=== PATIENT | female | born 1955 | race Caucasian/White ===

== ENCOUNTER 2020-09-08 21:24 | Observation (INO) ==
[2020-09-08] MEDS ORDERED: ONDANSETRON INJ 2 MG/ML 2 ML VIAL IV STA (23:20)
[2020-09-08] MEDS ORDERED: SODIUM CHLORIDE 0.9% 1000ML 1,000 ML IV SCH (23:30)
[2020-09-08 23:32] LABS: Hematocrit (blood only) 39.9 % (37-47); Hemoglobin 13.4 g/dL (12.0-16.0); Mean Corpuscular Hemoglobin 31.4 pg (25-34); Mean Corpuscular Hgb Conc 33.6 g/dL (32-36); Mean Corpuscular Volume 93.4 fL (80-100); Mean Platelet Volume 10.5 fL (7.4-10.4); Platelet Count 174 K/uL (130-400); RDW Coefficient of Variation 13.4 % (11.5-14.5); RDW Standard Deviation 46.2 fL (36.4-46.3); Red Blood Count 4.27 M/uL (4.2-5.4); White Blood Count 9.07 K/uL (4.8-10.8)
[2020-09-08 23:49] LABS: Alanine Aminotransferase 19 U/L (12-78); Albumin Level 3.5 gm/dl (3.4-5.0); Aspartate Aminotransferase 25 U/L (15-37); BUN Creatinine Ratio 32.8 (10-20); Blood Urea Nitrogen 23 mg/dl (7-18); Calcium 8.3 mg/dl (8.5-10.1); Carbon Dioxide 24 mmol/L (21-32); Chloride 109 mmol/L (98-107); Creatinine Clr Calc Pharmacy 70.6 ml/min; Est GFR (African American) 103.6 ml/min; Est GFR (Non-African American) 89.4 ml/min; Glucose 106 mg/dl (70-99); Lipase 131 U/L (73-393); Potassium 3.8 mmol/L (3.5-5.1); Sodium 138 mmol/L (136-145)
[2020-09-08 23:56] LABS: Albumin Globulin Ratio 0.9 (0.9-2); Alkaline Phosphatase 67 U/L (45-117); Bilirubin,Total 0.4 mg/dl (0.2-1); Globulin 3.9 gm/dl (2.5-4.0); NT Pro B Type Natriuretic Pept 172 pg/ml (0-900); Total Protein 7.4 gm/dl (6.4-8.2); Troponin I < 0.015 ng/ml (0-0.045)
--- NOTE | 2020-09-09 | Emergency Department Note ---
History of Present Illness General Chief complaint: Illness Stated complaint: HEADACHE, FEVER, PRESSURE IN LUNGS Time Seen by Provider: 09/08/20 23:01 Source: patient Mode of arrival: ambulatory Limitations: no limitations History of Present Illness Provider complaint: headache, chest pain, joint pains, nausea Onset (ago): week(s) 1 Location: head and chest Radiation: non-radiation Severity: moderate Maximum Pain Intensity: 8 Current Pain Intensity: 8 Quality: + constant Relieved By: + none Exacerbated By: + none Associated symptoms: + chest pain, + cough, + fever/chills, + headaches, + loss of appetite, + malaise, + nausea/vomiting and + shortness of breath Treatments prior to arrival: other This is a 65-year-old female presents emergency department with multiple complaints. Patient states 1 week ago she had her first Remicade infusion. P atient states many years ago she took Remicade without any difficulty. She states the next day after the infusion she developed a dull headache. Patient states headache persisted throughout the week, was fairly constant and unchanging but she otherwise felt fine. She states 2 days ago she began n oticing a left-sided chest discomfort with dry cough. Patient states she has had mild accompanying rhinorrhea. States she does feel slightly short of breath with this pain. States tonight she developed a low-grade fever and diffuse bilateral arthralgias. She states the arthralgias feel worse than her prior flares of her RA. Patient denies any other change in her medications, diet, or activity. No known sick contacts. Patient did previously have coronavirus and has since been vaccinated in addition. Patient states she was nauseated today also however did not vomit. No change in bowel movements or urine. She denies any rash or sores. Pt seen during a time of high acuity and national emergency pandemic while wearing PPE. Home Medications Medication Instructions Recorded Confirmed Type calcium carbonate 600 mg (1,500 1 tab PO DAILY 09/08/20 09/08/20 History mg)-vitamin D3 400 unit tablet (Calcium 600 + D(3)) celecoxib 200 mg capsule (Celebrex) 200 mg PO BID PRN 09/08/20 09/08/20 History cholecalciferol (vitamin D3) 25 0 mcg PO DAILY 09/08/20 09/08/20 History mcg (1,000 unit) capsule (Vitamin D3) ferrous sulfate 27 mg iron tablet 27 mg PO DAILY 09/08/20 09/08/20 History hydrochlorothiazide 25 mg tablet 25 mg PO DAILY 09/08/20 09/08/20 History infliximab 100 mg intravenous 0 mg IV DIRECTED 09/08/20 09/08/20 History solution (Remicade) montelukast 10 mg tablet 10 mg PO DAILY 09/08/20 09/08/20 History (Singulair) omeprazole 40 mg capsule,delayed 40 mg PO DAILY PRN 09/08/20 09/08/20 History release Allergies Allergy/AdvReac Type Severity Reaction Status Date / Time codeine AdvReac Mild HALUCINATIO Verified 09/09/20 03:10 NS tramadol AdvReac Mild UPSET Verified 09/09/20 03:10 STOMACH Past Med/Surg History Medical History Hypertension Rheumatoid arthritis Social History Smoking Status: Never smoker Hx Alcohol Use: No Hx Substance Use: No Preferred Language: Anguillan Communication Ability: Effective Contact Lens Cutter Required: No Beliefs That Will Affect Care: None Current Living Situation: Spouse Other Information That Helps Us Care for You: No Feels Safe at Home: Yes Safety Concerns: Feels Safe At This Time Assistive Devices: None Review of Systems A total of 10 systems reviewed and were otherwise negative All systems reviewed & are unremarkable except as noted in HPI & below Physical Exam Vital Signs Vital Signs - 24 hr 09/08/20 21:27 09/08/20 22:52 09/09/20 00:50 Temperature 37.9 C H 37.2 C Temperature Source Temporal Artery Scan Oral Pulse Rate 93 H Pulse Rate [Radial] 89 83 Pulse Rhythm [Radial] Regular Respiratory Rate 18 16 18 Respiratory Effort / Characteristics Non-Labored Spontaneous Respiratory Depth Normal Blood Pressure 142/71 H Blood Pressure [Right Arm] 131/65 139/55 L Blood Pressure Mean 94 Blood Pressure Mean [Right Arm] 87 83 Pulse Oximetry 94 95 96 Oxygen Delivery Method Room Air Room Air Room Air Sepsis Recent Fever Within 48 Hours No Sepsis New/Unexplained Change in Mental Status No Sepsis Action Taken by Nursing No Action Required GENERAL: alert, unwell appearing, well nourished, mild distress, non-toxic EYE EXAM: normal conjunctiva, PERRL and EOM's grossly intact OROPHARYNX: no exudate, no erythema, lips, buccal mucosa, and tongue normal and mucous membranes are moist NECK: supple, no nuchal rigidity, no adenopathy, non-tender LUNGS: Clear to auscultation. Normal chest wall mechanics, no w/r/r HEART: no murmurs, S1 normal and S2 normal, mild tenderness with palpation of the left chest wall, no crepitus ABDOMEN: abdomen soft, non-tender, normo-active bowel sounds, no masses, no rebound or guarding. BACK: Back is symmetrical on inspection and there is no deformity, no midline tenderness, no CVA tenderness. SKIN: no rashes and no bruising UPPER EXTREMITIES: upper extremities are grossly normal. FROM, nml pulses b/l. No joint effusions. Pain with range of motion testing LOWER EXTREMITIES: No pitting edema. FROM, nml pulses b/l. No joint effusions. Pain with range of motion testing. NEURO EXAM: Normal sensorium, cranial nerves II-XII grossly intact, normal speech, no gross weakness of arms, no gross weakness of legs. Gross sensation intact. Course Course 0056: Pt updated on results. States no improvement. 0135: Still no improvement after additional medications. Feels unsteady getting up and walking due to lightheadedness as well as joint pain. States headache is mildly improved although still present. Nausea is improved. 0250: Discussed with Dr. Hewitt. Administered Medications Acetaminophen (Acetaminophen 500 Mg Tab) 500 mg PO QID [facility] Stop: 10/09/20 08:59 Last Admin: 09/10/20 05:36 Dose: Not Given Documented by: [id number] Admin: 09/09/20 16:46 Dose: 500 mg Documented by: [id number] Admin: 09/09/20 12:42 Dose: 500 mg Documented by: [id number] Admin: 09/09/20 09:39 Dose: 500 mg Documented by: [id number] Celecoxib (Celebrex 200 Mg Cap) 200 mg PO BID PRN PRN Reason: Pain Stop: 10/09/20 05:06 Last Admin: 09/09/20 10:50 Dose: 200 mg Documented by: [id number] Enoxaparin Sodium (Enoxaparin Inj 40 Mg/0.4 Ml Syr) 40 mg SQ QAM SHRUTI Stop: 10/09/20 08:59 Last Admin: 09/09/20 09:35 Dose: 40 mg Documented by: [id number] Ketorolac Tromethamine (Ketorolac Tromethamine 15 Mg/Ml Vial) 15 mg IV Q6H PRN PRN Reason: Pain Stop: 09/14/20 02:58 Last Admin: 09/09/20 03:16 Dose: 15 mg Documented by: [id number] Montelukast Sodium (Montelukast Sodium 10 Mg Tablet) 10 mg PO DAILY SHRUTI Stop: 10/09/20 08:59 Last Admin: 09/09/20 09:35 Dose: 10 mg Documented by: [id number] Vitamin D (Cholecalciferol 1,000 Units 25 Mcg Tab) 1,000 units PO DAILY SHRUTI Stop: 10/09/20 08:59 Last Admin: 09/09/20 09:35 Dose: 1,000 units Documented by: [id number] Discontinued Medications Calcium Gluconate (Calcium Gluconate 1000 Mg/60 Ml Nss) Confirm Administered Dose 1,000 mg IV .STK-MED ONE Stop: 09/09/20 03:05 Last Admin: 09/09/20 03:13 Dose: Not Given Documented by: [id number] Diphenhydramine HCl (Diphenhydramine 50 Mg/Ml Vial) 12.5 mg IV NOW STA Stop: 09/09/20 00:38 Last Admin: 09/09/20 00:44 Dose: 12.5 mg Documented by: [id number] Famotidine (Famotidine 20mg/5ml Iv Push) 20 mg IV ONE STA Stop: 09/09/20 00:38 Last Admin: 09/09/20 00:44 Dose: 20 mg Documented by: [id number] Sodium Chloride (Nss 1000ml) 1,000 mls @ 125 mls/hr IV .Q8H SHRUTI Stop: 10/08/20 23:29 Last Infusion: 09/09/20 04:55 Dose: 0 mls/hr Documented by: [id number] Admin: 09/08/20 23:36 Dose: 125 mls/hr Documented by: [id number] Acetaminophen (Ofirmev) 1,000 mg in 100 mls @ 400 mls/hr IV NOW STA Stop: 09/09/20 00:51 Last Infusion: 09/09/20 03:10 Dose: 0 mls/hr Documented by: [id number] Admin: 09/09/20 00:43 Dose: 400 mls/hr Documented by: [id number] Calcium Gluconate () 1,000 mg in 60 mls @ 240 mls/hr IV NOW STA Stop: 09/09/20 03:24 Last Infusion: 09/09/20 03:28 Dose: 0 mls/hr Documented by: [id number] Admin: 09/09/20 03:12 Dose: 240 mls/hr Documented by: [id number] Potassium Chloride/Sodium Chloride (Normal Saline W/20 Meq Kcl) 20 meq in 1,000 mls @ 80 mls/hr IV .[id number] ONE Stop: 09/09/20 17:59 Last Infusion: 09/09/20 19:48 Dose: 0 mls/hr Documented by: [id number] Admin: 09/09/20 06:38 Dose: 80 mls/hr Documented by: [id number] Methylprednisolone 40 mg/ (Syringe) 0.64 mls @ 1.5 mls/min IV ONE ONE Stop: 09/09/20 16:01 Last Admin: 09/09/20 16:46 Dose: 1.5 mls/min Documented by: [id number] Ioversol (Optiray 320 125ml) 125 ml IV ONCE ONE Stop: 09/09/20 04:49 Last Admin: 09/09/20 04:49 Dose: 95 ml Documented by: [id number] Loratadine (Loratadine 10 Mg Tab) 10 mg PO NOW ONE Stop: 09/09/20 05:31 Last Admin: 09/09/20 06:04 Dose: 10 mg Documented by: [id number] Ondansetron HCl (Ondansetron Inj 2 Mg/Ml 2 Ml Vial) 4 mg IV NOW STA Stop: 09/08/20 23:21 Last Admin: 09/08/20 23:36 Dose: 4 mg Documented by: [id number] Medical Decision Making Differential Diagnosis Differential Diagnosis includes but is not limited to headache, tension headache, cluster headache, migraine, subarachnoid hemorrhage, meningitis, mass, central venous thrombus, concussion, trauma and epidural/subdural hemorrhage. Medical Records Attestation: I reviewed the patient's medical records. Home Medications Current Medication List: was personally reviewed by me Laboratory Data Attestation: I reviewed the patient's lab results. Result diagrams: 09/09/20 05:25 09/09/20 05:25 Lab Results 09/08/20 09/08/20 09/09/20 Range/Units 22:50 22:50 02:19 WBC 9.07 (4.8-10.8) K/uL RBC 4.27 (4.2-5.4) M/uL Hgb 13.4 (12.0-16.0) g/dL Hct 39.9 (37-47) % MCV 93.4 (80-100) fL MCH 31.4 (25-34) pg MCHC 33.6 (32-36) g/dL RDW Std Deviation 46.2 (36.4-46.3) fL RDW Coeff of Christina 13.4 (11.5-14.5) % Plt Count 174 (130-400) K/uL MPV 10.5 H (7.4-10.4) fL Immature Gran % (Auto) 0.1 % Neut % (Auto) 72.8 % Lymph % (Auto) 17.5 % [place] % (Auto) 8.3 % Eos % (Auto) 0.9 % Baso % (Auto) 0.4 % Neut # (Auto) 6.60 H (1.4-6.5) K/uL Lymph # (Auto) 1.59 (1.2-3.4) K/uL [place] # (Auto) 0.75 H (0.11-0.59) K/uL Eos # (Auto) 0.08 (0-0.5) K/uL Baso # (Auto) 0.04 (0-0.2) K/uL Immature Gran # (Auto) 0.01 (0.00-0.02) K/uL Sodium 138 (136-145) mmol/L Potassium 3.8 (3.5-5.1) mmol/L Chloride 109 H (98-107) mmol/L Carbon Dioxide 24 (21-32) mmol/L Anion Gap 5.0 (3-11) BUN 23 H (7-18) mg/dl Creatinine 0.71 (0.6-1.2) mg/dl Est Cr Clr Drug Dosing 70.6 ml/min Est GFR ( Amer) 103.6 ml/min Est GFR (Non-Af Amer) 89.4 ml/min BUN/Creatinine Ratio 32.8 H (10-20) Glucose 106 H (70-99) mg/dl Calcium 8.3 L (8.5-10.1) mg/dl Magnesium 2.0 (1.8-2.4) mg/dl Total Bilirubin 0.4 (0.2-1) mg/dl AST 25 (15-37) U/L ALT 19 (12-78) U/L Alkaline Phosphatase 67 (45-117) U/L Troponin I < 0.015 (0-0.045) ng/ml NT-Pro-B Natriuret Pep 172 (0-900) pg/ml Total Protein 7.4 (6.4-8.2) gm/dl Albumin 3.5 (3.4-5.0) gm/dl Globulin 3.9 (2.5-4.0) gm/dl Albumin/Globulin Ratio 0.9 (0.9-2) Lipase 131 (73-393) U/L TSH 3.030 (0.300-4.500) uIu/ml Specimen Hemolysis POC Urine pH 5 (4.5-7.5) POC Urine Protein Negative (Negative) POC Ur Glucose (UA) Normal (Normal) POC Urine Ketones Negative (Negative) POC Urine Blood Negative (Negative) POC Urine Nitrite Negative (Negative) POC Urine Bilirubin Negative (Negative) POC Urine Urobilinogen Normal (Normal) POC U Leukocyte Esteras Negative (Negative) COVID-19 Eval Order SARS-CoV-2 (PCR) (Negative) 09/09/20 09/09/20 Range/Units 02:44 02:44 WBC (4.8-10.8) K/uL RBC (4.2-5.4) M/uL Hgb (12.0-16.0) g/dL Hct (37-47) % MCV (80-100) fL MCH (25-34) pg MCHC (32-36) g/dL RDW Std Deviation (36.4-46.3) fL RDW Coeff of Christina (11.5-14.5) % Plt Count (130-400) K/uL MPV (7.4-10.4) fL Immature Gran % (Auto) % Neut % (Auto) % Lymph % (Auto) % [place] % (Auto) % Eos % (Auto) % Baso % (Auto) % Neut # (Auto) (1.4-6.5) K/uL Lymph # (Auto) (1.2-3.4) K/uL [place] # (Auto) (0.11-0.59) K/uL Eos # (Auto) (0-0.5) K/uL Baso # (Auto) (0-0.2) K/uL Immature Gran # (Auto) (0.00-0.02) K/uL Sodium (136-145) mmol/L Potassium (3.5-5.1) mmol/L Chloride (98-107) mmol/L Carbon Dioxide (21-32) mmol/L Anion Gap (3-11) BUN (7-18) mg/dl Creatinine (0.6-1.2) mg/dl Est Cr Clr Drug Dosing ml/min Est GFR ( Amer) ml/min Est GFR (Non-Af Amer) ml/min BUN/Creatinine Ratio (10-20) Glucose (70-99) mg/dl Calcium (8.5-10.1) mg/dl Magnesium (1.8-2.4) mg/dl Total Bilirubin (0.2-1) mg/dl AST (15-37) U/L ALT (12-78) U/L Alkaline Phosphatase (45-117) U/L Troponin I (0-0.045) ng/ml NT-Pro-B Natriuret Pep (0-900) pg/ml Total Protein (6.4-8.2) gm/dl Albumin (3.4-5.0) gm/dl Globulin (2.5-4.0) gm/dl Albumin/Globulin Ratio (0.9-2) Lipase (73-393) U/L TSH (0.300-4.500) uIu/ml Specimen Hemolysis POC Urine pH (4.5-7.5) POC Urine Protein (Negative) POC Ur Glucose (UA) (Normal) POC Urine Ketones (Negative) POC Urine Blood (Negative) POC Urine Nitrite (Negative) POC Urine Bilirubin (Negative) POC Urine Urobilinogen (Normal) POC U Leukocyte Esteras (Negative) COVID-19 Eval Order Covid19 at [facility] SARS-CoV-2 (PCR) NEGATIVE (Negative) Imaging Data Radiologist's Impression: CT head: No ICH, mass-effect or edema. No evidence of acute cortical stroke. Visualized sinuses and mastoid air cells are clear. Radiologist: Amor Alvarado MD CT abdomen and pelvis without contrast: Bilateral nephrolithiasis. No ureteral stones or obstructive changes. No radiodense gallstones or pancreatitis. Colonic diverticula without diverticulitis. Appendix not identified. Calcified granuloma in the left lung base. Radiologist: Amor Alvarado MD ECG Data Attestation: I personally reviewed and interpreted this ECG as follows: Indication: + chest pain Rate (beats per minute): 83 Rhythm: + normal sinus ECG Intervals/blocks: + Normal QRS and + Normal QT ECG [place]: + Normal ECG ST segments: + Nonspecific ST abnormalities MDM Narrative This is a 65-year-old female with a history of rheumatoid arthritis who presents with multiple worsening symptoms over the course of the week following a Remicade infusion. No prior ADRs with Remicade infusions 15 years ago. No other recent medication changes or sick contact. Patient's headache worsening and patient now with diffuse bilateral joint pains and chest pain. Patient's labs and imaging here are reassuring. Patient reported persistent lightheadedness and pain with attempts at ambulation and I feel at this time is a fall risk and unsafe to go home where she is typically able to ambulate independently. Patient's headache was improved although not resolved with Tylenol. Patient otherwise had a nonfocal neuro exam and I do not suspect other acute [place] pathology. Discussed all results with patient, and case discussed with hospitalist for additional evaluation and management. An order was placed for continuous cardiac monitoring. The monitor shows a rate of 80_ with _normal sinus rhythm. Impression & Plan Headache, Chest pain, Arthralgia, Rheumatoid arthritis Discharge Plan Visit Data Chief Complaint: Illness Stated Complaint: HEADACHE, FEVER, PRESSURE IN LUNGS ED Provider: Taty Reilly Discharge Problem: Headache, Chest pain, Arthralgia, Rheumatoid arthritis Patient Disposition: Admitted As Inpatient Discharge Instructions Interventions: ED Discharge Assessment Last Done: 09/09/20 04:34 Discharge Problem: Headache Qualifiers: Headache type: unspecified Headache chronicity pattern: acute headache Intractability: not intractable Qualified Code(s): R51.9 - Headache, unspecified Chest pain Qualifiers: Chest pain type: unspecified Qualified Code(s): R07.9 - Chest pain, unspecified Arthralgia Qualifiers: Joint pain location: unspecified Qualified Code(s): M25.50 - Pain in unspecified joint Rheumatoid arthritis Qualifiers: Rheumatoid arthritis location: unspecified site Rheumatoid factor presence: unspecified presence Qualified Code(s): M06.9 - Rheumatoid arthritis, unspecified
[2020-09-09 00:32] LABS: Basophils # (auto) 0.04 K/uL (0-0.2); Basophils % (auto) 0.4 %; Eosinophils # (auto) 0.08 K/uL (0-0.5); Eosinophils % (auto) 0.9 %; Immature Granulocytes # (auto) 0.01 K/uL (0.00-0.02); Immature Granulocytes % (auto) 0.1 %; Lymphocytes # (auto) 1.59 K/uL (1.2-3.4); Lymphocytes % (auto) 17.5 %; Monocytes # (auto) 0.75 K/uL (0.11-0.59); Monocytes % (auto) 8.3 %; Neutrophils % (auto) 72.8 %
[2020-09-09] MEDS ORDERED: FAMOTIDINE 20MG/5ML IV PUSH IV STA (00:37)
[2020-09-09] MEDS ORDERED: diphenhydrAMINE 50 MG/ML VIAL IV STA (00:37)
[2020-09-09] MEDS ORDERED: ACETAMINOPHEN 1,000 MG/100 ML VIAL IV STA (00:37)
[2020-09-09 02:21] LABS: POC Urine Bilirubin Negative (Negative); POC Urine Blood Negative (Negative); POC Urine Glucose Normal (Normal); POC Urine Ketones Negative (Negative); POC Urine Leukocytes Negative (Negative); POC Urine Nitrite Negative (Negative); POC Urine Protein Negative (Negative); POC Urine Urobilinogen Normal (Normal); POC Urine pH 5 (4.5-7.5)
[2020-09-09] MEDS ORDERED: ACETAMINOPHEN 325 MG TAB PO PRN (02:59)
[2020-09-09] MEDS ORDERED: KETOROLAC TROMETHAMINE 15 MG/ML VIAL IV PRN (02:59)
[2020-09-09] MEDS ORDERED: oxyCODONE HCL IR 5 MG TAB (IMMEDIATE RELEASE) PO PRN (03:01)
[2020-09-09] MEDS ORDERED: CALCIUM GLUCONATE 1000 MG/60 ML NSS IV ONE (03:04)
[2020-09-09] MEDS ORDERED: CALCIUM GLUCONATE 1,000 MG/60 ML BAG IV STA (03:10)
--- NOTE | 2020-09-09 03:54 | History & Physical Report ---
Date of Service September 09, 2020 Assessment & Plan (1) Atypical chest pain: Plan: Pleuritic chest pain associated with generalized joint aches Possible delayed reaction to recent Remicade infusion for seronegative spondyloarthropathy Rule out pulmonary embolism hypertension, stable past tobacco abuse OBS Medical telemetry CT chest PE study [id number] Tylenol and daily antihistaminic as per up-to-date recommendations for possible delayed Remicade infusion reaction Request a.m. provider to contact patient's [facility] special events director (Dr. Daniels) in a.m. for additional recommendations. DVT prophylaxis. Lovenox subcu Full code Text document was generated using wali voice recognition software. It may contain grammatical or spelling errors. Kindly contact undersigned for clarification of any documentation item in question. History of Present Illness Chief Complaint: Headache, generalized joint pains Primary Care Provider: Jacob Blankenship MD History obtained from patient, family, and records. Medical history significant for seronegative spondylarthritis, hypertension, hyperlipidemia, urinary incontinence status post surgery, past tobacco abuse. Last week, patient received outpatient Remicade infusion for ankylosing spondylitis after more than a decade. Prior insurance approval issues with medication. [facility] special events director recommended treatment with recurrence of iritis symptoms as per documentation. Achy frontal headache symptoms which patient attributed to side effects of infusion after treatment. Worsening headache and subsequent generalized joint aches. Pleuritic left-sided chest pain with some shortness of breath. No unusual cough symptoms. No abdominal pain, no constipation. Low-grade fever at home with chills and nausea symptoms. Patient directed to ER by outpatient nurse. Medical History as above Surgical History : Anoscopy, sinus surgery, partial hysterectomy, appendectomy, tonsillectomy, bladder defect surgery Family History : Breast cancer, COPD, stroke, heart disease, lung cancer, rheumatoid arthritis Personal/Social history : Past tobacco abuse, no EtOH intake, lives with Allergies Allergy/AdvReac Type Severity Reaction Status Date / Time codeine AdvReac Mild HALUCINATIO Verified 09/09/20 03:10 NS tramadol AdvReac Mild UPSET Verified 09/09/20 03:10 STOMACH Home Medications Medication Instructions Recorded Confirmed Type calcium carbonate 600 mg (1,500 1 tab PO DAILY 09/08/20 09/08/20 History mg)-vitamin D3 400 unit tablet (Calcium 600 + D(3)) celecoxib 200 mg capsule (Celebrex) 200 mg PO BID PRN 09/08/20 09/08/20 History cholecalciferol (vitamin D3) 25 0 mcg PO DAILY 09/08/20 09/08/20 History mcg (1,000 unit) capsule (Vitamin D3) ferrous sulfate 27 mg iron tablet 27 mg PO DAILY 09/08/20 09/08/20 History hydrochlorothiazide 25 mg tablet 25 mg PO DAILY 09/08/20 09/08/20 History infliximab 100 mg intravenous 0 mg IV DIRECTED 09/08/20 09/08/20 History solution (Remicade) montelukast 10 mg tablet 10 mg PO DAILY 09/08/20 09/08/20 History (Singulair) omeprazole 40 mg capsule,delayed 40 mg PO DAILY PRN 09/08/20 09/08/20 History release Past Med/Surg History Medical History Hypertension Rheumatoid arthritis Social History Smoking Status: Never smoker Hx Alcohol Use: No Hx Substance Use: No Preferred Language: Malian Communication Ability: Effective Paperhanger And Painter Required: No Beliefs That Will Affect Care: None Current Living Situation: Spouse Other Information That Helps Us Care for You: No Feels Safe at Home: Yes Safety Concerns: Feels Safe At This Time Assistive Devices: None Review of Systems Review of Systems: As per HPI, all 10 systems reviewed, all other ROS negative Physical Exam Physical Exam: GENERAL: uncomfortable, pleasant, no respiratory distress SKIN: Normal color, warm HEENT: [place] palpebral conjunctivae, no ptosis, dry buccal mucosa NECK : Supple, no tenderness CHEST : CTA, minimal chest wall tenderness HEART : RRR, no obvious murmurs ABDOMEN: Some distention, nontender EXTREMITIES : Diffuse joint tenderness, no LE swelling NEUROLOGIC : Coherent, no facial asymmetry, no other gross focality Results & Data Results & Data ([facility]) Vital Signs (Past 12 Hours) Vital Signs Temp Pulse Pulse Pulse Resp BP BP 09/09/20 03:17 73 19 125/50 L 09/09/20 00:50 37.2 C 83 18 139/55 L 09/08/20 22:52 89 16 131/65 09/08/20 21:27 37.9 C H 93 H 18 142/71 H Pulse Ox 09/09/20 03:17 94 09/09/20 00:50 96 09/08/20 22:52 95 09/08/20 21:27 94 Laboratory Results Laboratory Results WBC 9.07 K/uL (4.8-10.8) 09/08/20 22:50 RBC 4.27 M/uL (4.2-5.4) 09/08/20 22:50 Hgb 13.4 g/dL (12.0-16.0) 09/08/20 22:50 Hct 39.9 % (37-47) 09/08/20 22:50 MCV 93.4 fL (80-100) 09/08/20 22:50 MCH 31.4 pg (25-34) 09/08/20 22:50 MCHC 33.6 g/dL (32-36) 09/08/20 22:50 RDW Std Deviation 46.2 fL (36.4-46.3) 09/08/20 22:50 RDW Coeff of Christina 13.4 % (11.5-14.5) 09/08/20 22:50 Plt Count 174 K/uL (130-400) 09/08/20 22:50 MPV 10.5 fL (7.4-10.4) H 09/08/20 22:50 Immature Gran % (Auto) 0.1 % 09/08/20 22:50 Neut % (Auto) 72.8 % 09/08/20 22:50 Lymph % (Auto) 17.5 % 09/08/20 22:50 [place] % (Auto) 8.3 % 09/08/20 22:50 Eos % (Auto) 0.9 % 09/08/20 22:50 Baso % (Auto) 0.4 % 09/08/20 22:50 Neut # (Auto) 6.60 K/uL (1.4-6.5) H 09/08/20 22:50 Lymph # (Auto) 1.59 K/uL (1.2-3.4) 09/08/20 22:50 [place] # (Auto) 0.75 K/uL (0.11-0.59) H 09/08/20 22:50 Eos # (Auto) 0.08 K/uL (0-0.5) 09/08/20 22:50 Baso # (Auto) 0.04 K/uL (0-0.2) 09/08/20 22:50 Immature Gran # (Auto) 0.01 K/uL (0.00-0.02) 09/08/20 22:50 Sodium 138 mmol/L (136-145) 09/08/20 22:50 Potassium 3.8 mmol/L (3.5-5.1) 09/08/20 22:50 Chloride 109 mmol/L (98-107) H 09/08/20 22:50 Carbon Dioxide 24 mmol/L (21-32) 09/08/20 22:50 Anion Gap 5.0 (3-11) 09/08/20 22:50 BUN 23 mg/dl (7-18) H 09/08/20 22:50 Creatinine 0.71 mg/dl (0.6-1.2) 09/08/20 22:50 Est Cr Clr Drug Dosing 70.6 ml/min 09/08/20 22:50 Est GFR ( Amer) 103.6 ml/min 09/08/20 22:50 Est GFR (Non-Af Amer) 89.4 ml/min 09/08/20 22:50 BUN/Creatinine Ratio 32.8 (10-20) H 09/08/20 22:50 Glucose 106 mg/dl (70-99) H 09/08/20 22:50 Calcium 8.3 mg/dl (8.5-10.1) L 09/08/20 22:50 Magnesium 2.0 mg/dl (1.8-2.4) 09/08/20 22:50 Total Bilirubin 0.4 mg/dl (0.2-1) 09/08/20 22:50 AST 25 U/L (15-37) 09/08/20 22:50 ALT 19 U/L (12-78) 09/08/20 22:50 Alkaline Phosphatase 67 U/L (45-117) 09/08/20 22:50 Troponin I < 0.015 ng/ml (0-0.045) 09/08/20 22:50 NT-Pro-B Natriuret Pep 172 pg/ml (0-900) 09/08/20 22:50 Total Protein 7.4 gm/dl (6.4-8.2) 09/08/20 22:50 Albumin 3.5 gm/dl (3.4-5.0) 09/08/20 22:50 Globulin 3.9 gm/dl (2.5-4.0) 09/08/20 22:50 Albumin/Globulin Ratio 0.9 (0.9-2) 09/08/20 22:50 Lipase 131 U/L (73-393) 09/08/20 22:50 TSH 3.030 uIu/ml (0.300-4.500) 09/08/20 22:50 Specimen Hemolysis 09/08/20 22:50 POC Urine pH 5 (4.5-7.5) 09/09/20 02:19 POC Urine Protein Negative (Negative) 09/09/20 02:19 POC Ur Glucose (UA) Normal (Normal) 09/09/20 02:19 POC Urine Ketones Negative (Negative) 09/09/20 02:19 POC Urine Blood Negative (Negative) 09/09/20 02:19 POC Urine Nitrite Negative (Negative) 09/09/20 02:19 POC Urine Bilirubin Negative (Negative) 09/09/20 02:19 POC Urine Urobilinogen Normal (Normal) 09/09/20 02:19 POC U Leukocyte Esteras Negative (Negative) 09/09/20 02:19 COVID-19 Eval Order Covid19 at [facility] 09/09/20 02:44 SARS-CoV-2 (PCR) NEGATIVE (Negative) 09/09/20 02:[address] head initial read: No ICH, mass-effect or edema. No evidence of acute cortical stroke. CT abdomen pelvis initial read: Bilateral nephrolithiasis. No ureteral stones or obstructive changes. No radiodense gallstones or pancreatitis. Colonic diverticulosis. Appendix not identified. Calcified granuloma left lung base. Chest x-ray as per my interpretation chronic interstitial thickening EKG as per my interpretation : Rate 85, NSR, normal axis, diffuse T wave flattening
[2020-09-09] MEDS ORDERED: OPTIRAY 320 125ml IV ONE (04:48)
[2020-09-09] MEDS ORDERED: PROMETHAZINE HCL 12.5 MG in SODIUM CHLORIDE 0.9% 50 ML IV PRN (05:07)
[2020-09-09] MEDS ORDERED: CeleBREX 200 MG CAP PO PRN (05:07)
[2020-09-09] MEDS ORDERED: PANTOprazole 40 MG TAB PO PRN (05:16)
[2020-09-09] MEDS ORDERED: NSS + 20MEQ KCL 20 MEQ/1,000 ML BAG IV ONE (05:30)
[2020-09-09] MEDS ORDERED: LORATADINE 10 MG TAB PO ONE (05:30)
[2020-09-09 05:44] LABS: Lyme Ab IgG w/WB Rflx Negative (Negative); Lyme Ab IgM w/WB Rflx Negative (Negative)
[2020-09-09 05:46] LABS: Hematocrit (blood only) 37.5 % (37-47); Hemoglobin 12.3 g/dL (12.0-16.0); Mean Corpuscular Hemoglobin 30.9 pg (25-34); Mean Corpuscular Hgb Conc 32.8 g/dL (32-36); Mean Corpuscular Volume 94.2 fL (80-100); Mean Platelet Volume 9.9 fL (7.4-10.4); Platelet Count 149 K/uL (130-400); RDW Coefficient of Variation 13.5 % (11.5-14.5); RDW Standard Deviation 46.8 fL (36.4-46.3); Red Blood Count 3.98 M/uL (4.2-5.4); White Blood Count 7.28 K/uL (4.8-10.8)
[2020-09-09 06:00] LABS: BUN Creatinine Ratio 29.5 (10-20); Calcium 8.6 mg/dl (8.5-10.1); Creatinine Clr Calc Pharmacy 68.5 ml/min; Est GFR (African American) 98.5 ml/min; Potassium 3.5 mmol/L (3.5-5.1)
[2020-09-09 06:04] LABS: Basophils # (auto) 0.03 K/uL (0-0.2); Basophils % (auto) 0.4 %; Eosinophils # (auto) 0.05 K/uL (0-0.5); Eosinophils % (auto) 0.7 %; Immature Granulocytes # (auto) 0.01 K/uL (0.00-0.02); Immature Granulocytes % (auto) 0.1 %; Lymphocytes # (auto) 1.63 K/uL (1.2-3.4); Lymphocytes % (auto) 22.4 %; Monocytes # (auto) 0.39 K/uL (0.11-0.59); Monocytes % (auto) 5.4 %; Neutrophils # (auto) 5.17 K/uL (1.4-6.5)
--- NOTE | 2020-09-09 07:25 | CT Scan Report ---
HEAD CT NONCONTRAST CT DOSE: 537.48 mGy.cm HISTORY: atypical headache TECHNIQUE: Multiaxial CT images of the head were performed without the use of intravenous contrast. A utomated exposure control was utilized for this study. A dose lowering technique was utilized adheri ng to the principles of ALARA. Comparison: None. Findings: The paranasal sinuses and mastoid air cells are clear. The calvarium and skull base are int act. The ventricles and sulci are within normal limits. There is no mass, hematoma, midline shift, or acute infarct. Impression: No acute intracranial abnormality. ACT 112: Negative or not required by law. Electronically signed by: Kayden Olmstead M.D. 09/09/2020 7:24 AM
--- NOTE | 2020-09-09 07:55 | XRay Report ---
XR chest 1V portable HISTORY: Atypical chest pain COMPARISON: None. FINDINGS: No pneumothorax. No pleural effusions. The cardiac silhouette is top normal in size. There is mild diffuse interstitial thickening which is likely chronic. No evidence for pulmonary edema. No focal lung consolidations to suggest pneumonia. There is a calcified granuloma within the left lower lobe. IMPRESSION: Mild diffuse interstitial thickening is likely chronic. Otherwise, no acute process within the chest. ACT 112: Negative or not required by law. Electronically signed by: Kayden Olmstead M.D. 09/09/2020 7:54 AM
--- NOTE | 2020-09-09 08:15 | CT Scan Report ---
CT ANGIOGRAPHY OF THE CHEST, PULMONARY EMBOLUS PROTOCOL CLINICAL HISTORY: Chest pain. COMPARISON STUDY: Chest radiograph September 08, 2020. TECHNIQUE: Following IV administration of 95 mL of Optiray, helical axial images of the chest were ob tained utilizing the pulmonary embolus protocol. Maximal intensity projections and sagittal and nidia nal reformats were viewed on an independent 3D workstation. IV contrast was administered without com plication. Automated exposure control was utilized for the study. A dose lowering technique was uti lized adhering to the principles of ALARA. CT DOSE: 216.56 mGy.cm FINDINGS: No pulmonary emboli are identified. There is no thoracic aortic dissection. There is no pe ricardial effusion. Size of the heart is at the upper limits of normal. There are multiple calcified mediastinal and left hilar lymph nodes. There is a calcified granuloma within the left lower lobe. Mo derate emphysema is noted. No consolidation is identified to suggest pneumonia. IMPRESSION: 1. No pulmonary emboli identified. 2. No acute process within the chest. 3. Emphysema. 4. Evidence for a previous granulomatous process. ACT 112: Negative or not required by law. Electronically signed by: Craig Pascual M.D. 09/09/2020 8:14 AM
[2020-09-09] MEDS ORDERED: NON-FORMULARY MEDICATION (Ferrous Sulfate 27 mg iron Tablet) PO SCH (09:00)
[2020-09-09] MEDS: ENOXAPARIN INJ 40 MG/0.4 ML SYR SQ SCH (09:35)
[2020-09-09] MEDS: MONTELUKAST SODIUM 10 MG TABLET PO SCH (09:35)
[2020-09-09] MEDS: CHOLECALCIFEROL 1,000 UNITS 25 MCG TAB PO SCH (09:35)
[2020-09-09] MEDS: ACETAMINOPHEN 500 MG TAB PO SCH ×3 (09:39→16:46)
--- NOTE | 2020-09-09 09:47 | Electrocardiogram Report ---
Test Reason : Blood Pressure : / mmHG Vent. Rate : 083 BPM Atrial Rate : 083 BPM P-R Int : 140 ms QRS Dur : 092 ms QT Int : 314 ms P-R-T Axes : 073 -11 108 degrees QTc Int : 368 ms Normal sinus rhythm Diffuse Minor Nonspecific T wave abnormality Abnormal ECG No previous ECGs available Confirmed by Jacob Coleman ([id number]) on 09/09/2020 9:46:40 AM Referred By: REFERRED SELF Confirmed By:Jacob Coleman
--- NOTE | 2020-09-09 09:53 | CT Scan Report ---
CT SCAN OF THE ABDOMEN AND PELVIS WITHOUT CONTRAST CLINICAL HISTORY: nausea COMPARISON STUDY: No previous studies for comparison. TECHNIQUE: CT scan of the abdomen and pelvis was performed from the lung bases to the proximal femurs . Images are reviewed in the axial, sagittal, and coronal planes. IV contrast was not administered fo r this examination. A dose lowering technique was utilized adhering to the principles of ALARA. CT DOSE: 306.53 mGy.cm FINDINGS: Lower chest: Minimal atelectasis is seen at dependent portions of bilateral lower lobes. Large calcif ied nodule is seen at the subpleural aspect of the left lower lobe. Liver: The unenhanced liver is normal in size, contour, and attenuation. There is no intrahepatic bartolo iary ductal dilatation. Gallbladder: Unremarkable. Spleen: Normal in size and attenuation. Pancreas: Unremarkable. Adrenal glands: Unremarkable. Kidneys: No evidence of hydronephrosis. Multiple calculi are seen within bilateral renal pelvises whi ch measures up to 2 mm on the right. Minimal prominence of the right renal pelvis without definite hy dronephrosis.. No calculi within ureter is seen. Bowel: The small bowel and colon are normal in course and caliber. Appendix is not well seen. Peritoneum: There is no intraperitoneal free air or abdominal ascites. Vasculature: Abdominal aorta is normal in caliber with scattered calcifications of its wall. Adenopathy: None. Pelvic viscera: Urinary bladder is partially decompressed which limits evaluation. Uterus is surgical ly absent. Possible right adnexal cyst measuring 2 cm in size (2/60) Skeletal structures: Thoracolumbar S-shaped scoliosis associated with multilevel severe degenerative changes of the spine. Mild diffuse osteopenia. IMPRESSION: 1. Bilateral nephrolithiasis without definite hydronephrosis. 2. Nondilated loops of bowel. Appendix is not well seen. 3. Degenerative changes of the spine. 4. Possible right adnexal cysts. Please correlate above-mentioned findings with [employer]IT[employer] evaluation. 5. The rest of findings as above. ACT 112: Negative or not required by law. The above report was generated using voice recognition software. It may contain grammatical, syntax o r spelling errors. Electronically signed by: Lisa Clements DO 09/09/2020 9:52 AM
[2020-09-09] MEDS ORDERED: methylPREDNISolone 40 MG in SYRINGE 0 ML IV ONE (16:00)
--- NOTE | 2020-09-09 16:09 | Hospitalist Progress Note ---
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 -CTA:No pulmonary emboli identified. No acute process within the chest. Emphysema. Evidence for a previous granulomatous process. -CT ABD:Bilateral nephrolithiasis without definite hydronephrosis. Nondilated loops of bowel. Appendix is not well seen. Degenerative changes of the spine. Possible right adnexal cysts. - Discussed with Dr.Francesca Daniels who recommends Prednisone taper course Start on Solumedrol 40mg X1 today and Prednisone taper starting tomorrow Will give Prednisone 40 mg daily for 2 days, 30 mg daily for 2 days, 20 mg daily for 2 days and then 10 mg for 1 week Needs follow-up with rheumatology upon discharge Pleuritic chest pain CTA as above Negative Troponin Chest pain resolved Monitor Hypertension stable past tobacco abuse DVT Px; Lovenox SQ Code Status Full code Admission and Anticipated Discharge Date Admission Date: September 09, 2020 Subjective Patient is seen and examined at bedside States having generalized body pain Also reports headache associated with nausea but no vomiting Denies chest pain, dyspnea, dizziness Discussed with rheumatology today Review of Systems Review of Systems: All systems reviewed & are unremarkable except as noted in Subjective Physical Exam Physical Exam: Physical Exam: Vitals signs as noted above General Appearance:Moderately built and nourished, no apparent distress Head: normocephalic, Atraumatic Eyes: normal inspection, EOMI Neck: supple, Trachea midline Respiratory/Chest: Normal breath sounds, CTA, No accessory muscle use Cardiovascular: S1, S2, No murmur Abdomen/GI:Soft, Non tender, Bowel sounds present Extremities/Musculoskeletal:normal inspection, no edema Neurologic/Psych:AAOX3, grossly no focal neurological deficits Skin: normal color, warm Results & Data Results & Data ([facility]) Vital Signs (Past 12 Hours) Vital Signs Temp Pulse Pulse Resp BP Pulse Ox 09/09/20 15:20 36.7 C 71 18 91/51 L 94 09/09/20 11:09 37.0 C 97 H 20 130/69 93 09/09/20 07:40 36.5 C 77 18 116/71 98 09/09/20 07:19 73 09/09/20 06:00 66 09/09/20 05:11 36.8 C 67 14 96/57 L 98 09/09/20 05:00 36.8 C 67 14 96/57 L 98 Laboratory Results Short CBC 09/08/20 09/09/20 Range/Units 22:50 05:25 WBC 9.07 7.28 (4.8-10.8) K/uL Hgb 13.4 12.3 (12.0-16.0) g/dL Hct 39.9 37.5 (37-47) % Plt Count 174 149 (130-400) K/uL BMP 09/08/20 09/09/20 22:50 05:25 Sodium 138 140 Potassium 3.8 3.5 Chloride 109 H 110 H Carbon Dioxide 24 27 BUN 23 H 22 H Creatinine 0.71 0.74 Glucose 106 H 90 Calcium 8.3 L 8.6 Cardiac Enzymes 09/08/20 Range/Units 22:50 Troponin I < 0.015 (0-0.045) ng/ml Liver Function 09/08/20 Range/Units 22:50 Total Bilirubin 0.4 (0.2-1) mg/dl AST 25 (15-37) U/L ALT 19 (12-78) U/L Alkaline Phosphatase 67 (45-117) U/L Albumin 3.5 (3.4-5.0) gm/dl
[2020-09-10] MEDS: ACETAMINOPHEN 500 MG TAB PO SCH ×2 (05:36→08:30)
[2020-09-10 07:33] LABS: Hematocrit (blood only) 38.1 % (37-47); Hemoglobin 12.5 g/dL (12.0-16.0); Mean Corpuscular Hemoglobin 30.9 pg (25-34); Mean Corpuscular Hgb Conc 32.8 g/dL (32-36); Mean Corpuscular Volume 94.1 fL (80-100); Mean Platelet Volume 10.1 fL (7.4-10.4); Platelet Count 162 K/uL (130-400); RDW Coefficient of Variation 13.4 % (11.5-14.5); RDW Standard Deviation 46.2 fL (36.4-46.3); Red Blood Count 4.05 M/uL (4.2-5.4); White Blood Count 7.99 K/uL (4.8-10.8)
[2020-09-10 08:06] LABS: BUN Creatinine Ratio 37.4 (10-20); Blood Urea Nitrogen 21 mg/dl (7-18); Calcium 8.8 mg/dl (8.5-10.1); Carbon Dioxide 26 mmol/L (21-32); Chloride 112 mmol/L (98-107); Creatinine Clr Calc Pharmacy 90.2 ml/min; Est GFR (African American) 113.4 ml/min; Est GFR (Non-African American) 97.8 ml/min; Glucose 105 mg/dl (70-99); Potassium 4.1 mmol/L (3.5-5.1); Sodium 142 mmol/L (136-145)
[2020-09-10 08:13] LABS: Troponin I < 0.015 ng/ml (0-0.045)
[2020-09-10] MEDS: ENOXAPARIN INJ 40 MG/0.4 ML SYR SQ SCH (08:31)
[2020-09-10] MEDS: MONTELUKAST SODIUM 10 MG TABLET PO SCH (08:31)
[2020-09-10] MEDS: CHOLECALCIFEROL 1,000 UNITS 25 MCG TAB PO SCH (08:31)
[2020-09-10] MEDS ORDERED: predniSONE 20 MG TAB PO SCH (09:00)
[2020-09-10] MEDS ORDERED: LORATADINE 10 MG TAB PO SCH (09:00)
--- NOTE | 2020-09-10 11:17 | Hospitalist Progress Note ---
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 -CTA:No pulmonary emboli identified. No acute process within the chest. Emphysema. Evidence for a previous granulomatous process. -CT ABD:Bilateral nephrolithiasis without definite hydronephrosis. Nondilated loops of bowel. Appendix is not well seen. Degenerative changes of the spine. Possible right adnexal cysts. - Discussed with Dr.Francesca Daniels who recommends Prednisone taper course Start on Solumedrol 40mg X1 today and Prednisone taper starting tomorrow Will give Prednisone 40 mg daily for 2 days, 30 mg daily for 2 days, 20 mg daily for 2 days and then 10 mg for 1 week Needs follow-up with rheumatology upon discharge Plan to discharge home today Pleuritic chest pain CTA as above Negative Troponin Chest pain resolved Monitor Hypertension stable past tobacco abuse DVT Px; Lovenox SQ Code Status Full code Admission and Anticipated Discharge Date Admission Date: September 09, 2020 Subjective Patient is seen and examined at bedside States feeling much better today Headache, arthritic pain improved No new complaints Denies chest pain, dyspnea, dizziness, nausea, abd pain Review of Systems Review of Systems: All systems reviewed & are unremarkable except as noted in Subjective Physical Exam Physical Exam: Physical Exam: Vitals signs as noted above General Appearance:Moderately built and nourished, no apparent distress Head: normocephalic, Atraumatic Eyes: normal inspection, EOMI Neck: supple, Trachea midline Respiratory/Chest: Normal breath sounds, CTA, No accessory muscle use Cardiovascular: S1, S2, No murmur Abdomen/GI:Soft, Non tender, Bowel sounds present Extremities/Musculoskeletal:normal inspection, no edema Neurologic/Psych:AAOX3, grossly no focal neurological deficits Skin: normal color, warm Results & Data Results & Data ([facility]) Vital Signs (Past 12 Hours) Vital Signs Temp Pulse Pulse Resp BP Pulse Ox 09/10/20 07:34 36.7 C 56 L 18 123/61 95 09/10/20 03:51 36.6 C 71 16 133/69 94 09/10/20 01:17 65 Laboratory Results Short CBC 09/10/20 Range/Units 07:20 WBC 7.99 (4.8-10.8) K/uL Hgb 12.5 (12.0-16.0) g/dL Hct 38.1 (37-47) % Plt Count 162 (130-400) K/uL BMP 09/10/20 07:20 Sodium 142 Potassium 4.1 D Chloride 112 H Carbon Dioxide 26 BUN 21 H Creatinine 0.56 L Glucose 105 H Calcium 8.8 Cardiac Enzymes 09/10/20 Range/Units 07:20 Troponin I < 0.015 (0-0.045) ng/ml
[2020-09-10 11:18] VITALS: O2SAT 96
--- NOTE | 2020-09-10 11:21 | Discharge Summary ---
Date of Service September 10, 2020 Admission HPI Per Admitting Provider History obtained from patient, family, and records. Medical history significant for seronegative spondylarthritis, hypertension, hyperlipidemia, urinary incontinence status post surgery, past tobacco abuse. Last week, patient received outpatient Remicade infusion for ankylosing spondylitis after more than a decade. Prior insurance approval issues with medication. [facility] [place] monitor recommended treatment with recurrence of iritis symptoms as per documentation. Achy frontal headache symptoms which patient attributed to side effects of infusion after treatment. Worsening headache and subsequent generalized joint aches. Pleuritic left-sided chest pain with some shortness of breath. No unusual cough symptoms. No abdominal pain, no constipation. Low-grade fever at home with chills and nausea symptoms. Patient directed to ER by outpatient nurse. Medical History as above Surgical History : Anoscopy, sinus surgery, partial hysterectomy, appendectomy, tonsillectomy, bladder defect surgery Family History : Breast cancer, COPD, stroke, heart disease, lung cancer, rheumatoid arthritis Personal/Social history : Past tobacco abuse, no EtOH intake, lives with Admission Exam Per Admitting Provider Physical Exam Physical Exam: GENERAL: uncomfortable, pleasant, no respiratory distress SKIN: Normal color, warm HEENT: [place] palpebral conjunctivae, no ptosis, dry buccal mucosa NECK : Supple, no tenderness CHEST : CTA, minimal chest wall tenderness HEART : RRR, no obvious murmurs ABDOMEN: Some distention, nontender EXTREMITIES : Diffuse joint tenderness, no LE swelling NEUROLOGIC : Coherent, no facial asymmetry, no other gross focality Principal Diagnosis Drug reaction Discharge Data Allergies Allergy/AdvReac Type Severity Reaction Status Date / Time codeine AdvReac Mild HALUCINATIO Verified 09/09/20 03:10 NS tramadol AdvReac Mild UPSET Verified 09/09/20 03:10 STOMACH Consultations 09/09/20 03:03 ED Decision to Admit Stat Ordered Studies 09/08/20 23:20 CT head/brain wo con Urgent 09/09/20 00:37 CT abd pelvis wo con Urgent 09/09/20 03:53 CT angio chest PE protocol Urgent Hospital Course (1) Atypical chest pain: Possible 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 -CTA:No pulmonary emboli identified. No acute process within the chest. Emphysema. Evidence for a previous granulomatous process. -CT ABD:Bilateral nephrolithiasis without definite hydronephrosis. Nondilated loops of bowel. Appendix is not well seen. Degenerative changes of the spine. Possible right adnexal cysts. - Discussed with Dr.Francesca Daniels who recommends Prednisone taper course Start on Solumedrol 40mg X1 today and Prednisone taper starting tomorrow Will give Prednisone 40 mg daily for 2 days, 30 mg daily for 2 days, 20 mg daily for 2 days and then 10 mg for 1 week Needs follow-up with rheumatology upon discharge Plan to discharge home today Pleuritic chest pain CTA as above Negative Troponin Chest pain resolved Monitor Hypertension stable past tobacco abuse DVT Px; Lovenox SQ Code Status Full code Total Time Total Time Spent Total Time Spent (In Minutes): 28 minutes Discharge Plan Discharge Items Patient Disposition: Home - Self-Care Reason For Visit: HEADACHE, FEVER, PRESSURE IN LUNGS Discharge Diagnosis: Drug reaction Activity: Per Instructions section Exercise/Sports: Wait until after follow-up appointment Non-emergency contact: Primary Care Provider and Specialist Call non-emergency contact if: you have any medication questions, your symptoms worsen, your pain is not controlled, your pain is concerning for you and you have a fever Follow-up/Referrals: Jacob Blankenship MD [Primary Care Provider] - Diet: Heart Healthy Addtl Attending Provider Instructions: Follow-up with your primary care physician Dr. Blankenship in 1 week as advised Follow-up with your engine monitor in 2 weeks as advised Complete the prednisone taper course as prescribed. Take Prednisone 40 mg daily for 1 day, then 30 mg daily for 2 days, then 20 mg daily for 2 days and then 10 mg for 1 week Seek immediate medical attention if your symptoms reoccur or worsen Please take all medications as instructed on discharge list below. Please call if you have any questions or problems. You can reach a [facility] hospitalist on duty at [facility] 24 hours a day by calling [phone] Pending Studies at Discharge: No Stand-Alone Forms: My [facility] Claim Maps, Smoking Cessation Medications and DC Order Prescriptions: New prednisone 10 mg tablet 10 mg PO UD Qty: 21 RF: 0 Continued celecoxib [Celebrex] 200 mg Capsule 200 mg PO BID PRN (Reason: Pain) RF: 0 omeprazole 40 mg Capsule,Delayed Release(Dr/Ec) 40 mg PO DAILY PRN (Reason: HEARTBURN/INDIGESTION) RF: 0 Remicade 100 mg Recon Soln 0 mg IV DIRECTED RF: 0 montelukast [Singulair] 10 mg Tablet 10 mg PO DAILY RF: 0 hydrochlorothiazide 25 mg Tablet 25 mg PO DAILY RF: 0 cholecalciferol (vitamin D3) [Vitamin D3] 25 mcg (1,000 unit) Capsule 0 mcg PO DAILY RF: 0 calcium carbonate-vitamin D3 [Calcium 600 + D(3)] 600 mg(1,500mg) -400 unit Tablet 1 tab PO DAILY RF: 0 ferrous sulfate 27 mg iron Tablet 27 mg PO DAILY RF: 0 Discharge Orders: Discharge Order (Routine); Ordered 09/10/20 Ordered By: Farzad Kelsey Admission Data Admit Date/Time: 09/09/20 03:56 Attending Provider: Farzad Kelsey Admit Provider: Aly Colin Primary Care Provider: Jacob Blankenship Other Providers: Aly Colin Other Interventions: Discharge Summary Assessment (RN) Last Done: 09/10/20 13:06
[2020-09-10 13:08] VITALS: BP 125/68; PULSE 68; TEMP 98.4
== END 2020-09-10 14:06 | disposition home or self-care (01) ==
LOC: 2W 21:24 → ED 21:24 → 2W 09-09 04:34